=== PATIENT | female | born 1995 | race Caucasian/White ===

== ENCOUNTER 2020-10-26 17:51 | Emergency (ER) | payer OTHER ==
[~2020-10-26] VITALS: Ht 167.6 cm; Wt 61.7 kg
[2020-10-26 17:57] VITALS: BP 116/71
--- NOTE | 2020-10-26 18:08 | NUR ---
Pt to restroom for urine sample.
[2020-10-26] MEDS ORDERED: SODIUM CHLORIDE FLUSH 10 ML SYR IVF STA (18:09)
--- NOTE | 2020-10-26 18:10 | NUR ---
Urine sample collected
--- NOTE | 2020-10-26 18:10 | NUR ---
Pt to lobby for next available bed. Dr. Gentile made aware of patient symptoms. Abd triage order set placed.
[2020-10-26 18:33] LABS: BASOPHILS # (AUTO) 0.1 K/uL (0.00-0.22); BASOPHILS % (AUTO) 0.8 % (0.0-2.0); EOSINOPHILS # (AUTO) 0.1 K/uL (0-0.4); EOSINOPHILS % (AUTO) 1.4 % (0.0-4.0); HEMATOCRIT 34.2 % (36-48); HEMOGLOBIN 11.3 g/dL (12.0-16.0); LYMPHOCYTES # (AUTO) 2.7 K/uL (2.5-16.5); MEAN CORPUSCULAR HEMOGLOBIN 26 pg (27-31); MEAN CORPUSCULAR HGB CONC 33 g/dL (33-37); MEAN CORPUSCULAR VOLUME 79.7 fL (80-94); MONOCYTES # (AUTO) 0.6 K/uL (0.8-1.0); MONOCYTES % (AUTO) 9.5 % (1.7-9.3); NEUTROPHILS # (AUTO) 3.3 K/uL (1.8-7.7); NEUTROPHILS % (AUTO) 48.3 % (42.2-75.2); PLATELET COUNT (AUTO) 248 K/uL (140-450); RED CELL DISTRIBUTION WIDTH 14.8 % (11.6-13.7); WHITE BLOOD COUNT (AUTO) 6.8 K/uL (4.8-10.8)
--- NOTE | 2020-10-26 18:51 | NUR ---
Dr. Gentile is evaluating patient in triage room.
[2020-10-26] MEDS ORDERED: NACL 0.9% 1,000 ML IV ONE (18:55)
[2020-10-26 19:06] LABS: ALBUMIN 4.1 g/dL (3.4-5.0); ANION GAP 18.6 (8-16); CARBON DIOXIDE 22.1 mmol/L (21-32); CREATININE 0.8 mg/dL (0.6-1.3); POTASSIUM 3.7 mmol/L (3.5-5.1); TOTAL BILIRUBIN 0.6 mg/dL (0.0-1.0)
--- NOTE | 2020-10-26 19:09 | NUR ---
Pt moved to bed 11.
--- NOTE | 2020-10-26 19:20 | NUR ---
MARY walked to lab, handed to CPT. Codie
--- NOTE | 2020-10-26 19:29 | NUR ---
Pt report given to ISRAEL OAKLEY. Transfer of care at this time.
--- NOTE | 2020-10-26 19:30 | NUR ---
RECEIVED PT AWAKE AND ALERT WITH C/O RLQ PAIN. DENIES N/V/D. RESPIRATIONS ARE REGULAR AND UNLABORED. REFUSED IV, BUT AGREES AT THIS TIME. 20G ESTABLISHED LEFT A/C WITH GOOD BLOOD RETURN, FLUSHES WITH EASE. PT C/O PAIN AND INSISTS THAT IT BE REMOVED. IV D/C'D.
[2020-10-26 19:44] LABS: APPEARANCE,URINE CLEAR (CLEAR); BILIRUBIN,URINE NEGATIVE (NEGATIVE); BLOOD, URINE NEGATIVE (NEGATIVE); COLOR,URINE YELLOW (YELLOW); LEUKOCYTE ESTERASE ,URINE NEGATIVE (NEGATIVE); NITRITE, URINE NEGATIVE (NEGATIVE); UGLUCOSE NEGATIVE (NEGATIVE)
--- NOTE | 2020-10-26 20:30 | NUR ---
18G SL ESTABLISHED RIGHT A/C
[2020-10-26] MEDS ORDERED: IBUP-2213 PO (21:52)
[2020-10-26 22:24] VITALS: BP 116/71
== END 2020-10-26 22:24 | disposition home or self-care (01) ==
LOC: MED 17:51
DX: R10.31 Right lower quadrant pain (principal); R19.7 Diarrhea, unspecified
CPT/HCPCS: 36415; 74177; 80053; 81003; 81025; 83690; 85025; 96360; 99285; Q9967; J7030

== ENCOUNTER 2022-07-17 13:35 | Emergency (ER) | payer OTHER ==
[~2022-07-17] VITALS: Ht 167.6 cm; Wt 64.4 kg
[~2022-07-17 13:35] MED LIST: IBUP-2213 PO
[2022-07-17 13:43] VITALS: BP 132/71
--- NOTE | 2022-07-17 13:49 | NUR ---
AMB. TO BED 9 WITH NO DIFFILTY. SWELLING TO LEFT KNEE NOTED
--- NOTE | 2022-07-17 14:11 | NUR ---
PT C/O LT KNEE SWELLING, PAIN, AND BRUISING AFTER FALLING OF THE SKATEBOART AND LANDING STRAIGHT ON IT. SAFETY MAINTAINED.
[2022-07-17] MEDS ORDERED: IBUP-2213 PO (14:28)
[2022-07-17 14:56] VITALS: BP 128/68
== END 2022-07-17 14:56 | disposition home or self-care (01) ==
LOC: MED 13:35
DX: S80.02XA Contusion of left knee, initial encounter (principal); R03.0 Elevated blood-pressure reading, without diagnosis of hypertension; F12.90 Cannabis use, unspecified, uncomplicated; Z79.1 Long term (current) use of non-steroidal anti-inflammatories (NSAID); W18.39XA Other fall on same level, initial encounter; Y92.89 Other specified places as the place of occurrence of the external cause; Y93.89 Activity, other specified; Y99.8 Other external cause status
CPT/HCPCS: 73562; 81025; 99283; Q0092